=== PATIENT | female | born 1960 | race African-American/Black ===

== ENCOUNTER 2016-10-05 14:56 | Emergency (ER) | payer OTHER ==
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
== END 2016-10-05 19:43 | disposition home or self-care (01) ==
LOC: CED 14:56
DX: S16.1XXA Strain of muscle, fascia and tendon at neck level, initial encounter (principal); Z78.0 Asymptomatic menopausal state; V49.00XA Driver injured in collision with unspecified motor vehicles in nontraffic accident, initial encounter
CPT/HCPCS: 70450; 70551; 72125; 73030; 96372; 99284; J1885